=== PATIENT | female | born 1995 | race Caucasian/White ===

== ENCOUNTER → 2016-11-10 | Outpatient (CLI) | payer OTHER | LOC: BHSO 09:00 | DX: F33.0 Major depressive disorder, recurrent, mild (principal) ==

== ENCOUNTER → 2017-03-03 | Outpatient (CLI) | payer OTHER | LOC: BHSO 14:31 | DX: F33.41 Major depressive disorder, recurrent, in partial remission (principal) ==

== ENCOUNTER → 2017-08-17 | Outpatient (CLI) | payer OTHER | LOC: BHSO 14:54 | DX: F33.1 Major depressive disorder, recurrent, moderate (principal) ==